=== PATIENT | male | born 1990 | race American Indian/Alaskan Native ===

== ENCOUNTER 2021-02-27 07:54 | Emergency (ER) | payer SELFPAY ==
[2021-02-27] MEDS ORDERED: SODIUM CHLORIDE 0.9% 1000 ML 1,000 ML IV ONE (09:02)
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
[2021-02-27 11:47] VITALS: BP 116/63
== END 2021-02-27 12:17 | disposition home or self-care (01) ==
LOC: ED 07:54
DX: R10.12 Left upper quadrant pain (principal); V87.7XXA Person injured in collision between other specified motor vehicles (traffic), initial encounter; Y93.89 Activity, other specified; Y92.488 Other paved roadways as the place of occurrence of the external cause; Y99.8 Other external cause status
CPT/HCPCS: 71260; 74177; 96360; 99284; J7030; Q9967